=== PATIENT | female | born 2000 | race Caucasian/White ===

== ENCOUNTER → 2021-02-01 | Outpatient (CLI) | payer OTHER | LOC: SURGPAT 13:22 | PROVIDERS: ATTEND Obstetrics & Gynecology | DX: Z01.818 Encounter for other preprocedural examination (principal); Z20.822 Contact with and (suspected) exposure to COVID-19 | CPT/HCPCS: U0003; U0005 ==

== ENCOUNTER 2021-02-06 06:00 | Day surgery (SDC) | payer OTHER ==
[2021-02-01 13:46] VITALS: BP 107/63
[~2021-02-06] VITALS: Ht 165.1 cm; Wt 60.5 kg
[~2021-02-06 06:00] MED LIST: CLINDAMYCIN 900MG PREMIX 50 ML IV PRN; HYDROmorphone 2 MG/ML VIAL IVP PRN; IV RINGERS,LACTATED 1000ML 1,000 ML IV SCH; PROCHLORPERAZINE 10 MG/2 ML VIAL. IVP PRN; fentaNYL PF VIAL 100 MCG/2 ML VIAL IVP PRN
[2021-02-06 06:16] VITALS: BP 106/64
[2021-02-06] MEDS ORDERED: BUPIVACAINE-EPI 0.25%-1:200000 MPF 30 ML VIAL. ONE (06:53)
[2021-02-06] MEDS ORDERED: METHYLENE BLUE 0.5% 10ml AMPULE. ONE (06:53)
[2021-02-06] MEDS ORDERED: PROPOFOL 10 MG/ML (20ML) VIAL. IV ONE (06:54)
[2021-02-06] MEDS ORDERED: LIDOCAINE 2% PF 5 ML VIAL. ONE (06:54)
[2021-02-06] MEDS ORDERED: ROCURONIUM 50 MG/5 ML VIAL. ONE (06:54)
[2021-02-06] MEDS ORDERED: fentaNYL PF VIAL 100 MCG/2 ML VIAL ONE ×2 (07:13→08:37)
[2021-02-06] MEDS ORDERED: MIDAZOLAM HCL/PF 2 MG/2 ML VIAL. ONE (07:14)
[2021-02-06] MEDS ORDERED: KETOROLAC 30 MG/ML VIAL. ONE ×2 (07:41→08:22)
[2021-02-06] MEDS ORDERED: SEVOFLURANE 61 TO 120 MINUTES. IH ONE (07:56)
[2021-02-06] MEDS ORDERED: NEOSTIGMINE METHYLSULFATE 5 MG/5 ML SYRINGE. ONE (08:05)
[2021-02-06] MEDS ORDERED: GLYCOPYRROLATE 1 MG/5 ML VIAL. ONE (08:05)
[2021-02-06] MEDS ORDERED: PROCHLORPERAZINE 10 MG/2 ML VIAL. ONE (08:37)
[2021-02-06] MEDS: fentaNYL PF VIAL 100 MCG/2 ML VIAL IVP PRN ×2 (09:02→09:13)
[2021-02-06] MEDS ORDERED: SIMETHICONE 80 MG TAB.CHEW PO PRN (09:15)
[2021-02-06] MEDS ORDERED: diphenhydrAMINE 50 MG/ML VIAL IV PRN (09:15)
[2021-02-06] MEDS ORDERED: CALCIUM CARBONATE 500 MG TAB.CHEW PO PRN (09:15)
[2021-02-06] MEDS ORDERED: HYDROcodone/APAP 5/325MG 1 TAB TABLET PO PRN (09:15)
[2021-02-06] MEDS ORDERED: NALOXONE 0.4 MG/ML VIAL. IV PRN (09:15)
[2021-02-06] MEDS ORDERED: MAG HYDROX/ALUMINUM HYD/SIMETH 30 ML ORAL.SUSP PO PRN (09:15)
[2021-02-06] MEDS ORDERED: 0.9 % SODIUM CHLORIDE 10 ML DISP.SYRIN. IV PRN (09:15)
[2021-02-06] MEDS ORDERED: diphenhydrAMINE HCL 25 MG CAPSULE PO PRN (09:15)
--- NOTE | 2021-02-06 09:20 | PDOC ---
BRIEF OPERATIVE NOTE Date: Feb 06, 2021 Pre-Op Diagnosis pelvic pain, menorrhagia Post-Op Diagnosis same plus endometriosis, left sided adhesions and left ovarian cyst Procedure Performed operative scope, vapo endo, lysis of adhesions and left ovarian cystectomy Surgeon Dr. Adelaida Soto Services Program Manager RITA Hernandez Anesthesiologist Dr. Buchanan Anesthesia Type: General Blood Loss 10cc IV Fluid see anesthesia records Urine Output straight cath prior and clear Specimens Obtained left ovarian cyst wall Findings RV uterus, left ovarian cyst, left sided colon adhesion and endometriosis in post cul de sac Complications none Operative Note [id number] ADELAIDA SOTO MD Feb 06, 2021 09:20
[2021-02-06] MEDS ORDERED: HYDR-2761 PO (09:24)
[2021-02-06] MEDS ORDERED: MORPHINE SULFATE 2 MG/ML INJ. ONE (09:32)
[2021-02-06] MEDS: MORPHINE SULFATE 2 MG/ML INJ. IVP PRN ×2 (09:35→09:42)
[2021-02-06 09:55] VITALS: BP 95/49
--- NOTE | 2021-02-06 11:38 | OP ---
DATE OF SURGERY: 02/06/2021 PREOPERATIVE DIAGNOSES: Pelvic pain, menorrhagia, dysmenorrhea. POSTOPERATIVE DIAGNOSES: Pelvic pain, menorrhagia, dysmenorrhea, endometriosis, left-sided adhesions and left ovarian cyst. PROCEDURES: Operative laparoscopy, vaporization of endometriosis, lysis of adhesions and left ovarian cystectomy. SURGEON: Adelaida Hernandez MD. FOOD PREP WORKER: RITA Hernandez. ANESTHESIOLOGIST: Kwesi Buchanan MD. ANESTHESIA: General. BLOOD LOSS: 10 mL. URINE OUTPUT: With a straight cath and clear prior to procedure. SPECIMEN: Left ovarian cyst wall. FINDINGS: A retroverted uterus, grossly normal appendix and right upper quadrant. She had a left ovarian cyst, left-sided descending colon adhesions, just above the IP ligament and left ovary, and endometriosis in the posterior cul-de-sac. COMPLICATIONS: None. DESCRIPTION OF PROCEDURE: This patient was taken to the operating room where general anesthesia was placed. The patient was placed in dorsal lithotomy position in [facility]. The patient's abdomen and vagina were prepped and draped in the normal sterile fashion and a straight cath urine was done prior to my arrival. Upon my arrival, a time-out was performed. Once everyone agreed on the patient, the site, the procedure and the antibiotics, the procedure was initiated. A bivalve speculum was placed in the patient's vagina. A single-tooth tenaculum was used to grasp the anterior lip of the cervix. The Valtchev uterine manipulator was placed through the endocervical os, locked on the single-tooth tenaculum and the bivalve speculum was then removed. Top gloves were discarded and changed. Attention was then turned to the abdomen where a small infraumbilical skin incision was made with a scalpel. A curved Clare was used to dissect through the subcuticular layer to the fascia. The 5 mm Visiport was used to directly enter the abdominal cavity. Opening patient pressure was 3 mmHg. Carbon dioxide gas was used to appropriately insufflate the abdominal cavity to maintain a pressure of 15 mmHg. Direct abdominal placement was confirmed via the laparoscope. The patient was placed in Trendelenburg position and overhead lights were dimmed. A small 5 mm suprapubic port was placed under direct visualization and a [place] or probe was used with the above findings. At this point, it was decided to put in a right lower quadrant port as well, finding an area clear of any vasculature, making a small incision and placing in under direct visualization. A 4-5 mL of air was placed in the suprapubic and the right lower quadrant port. The camera was moved laterally to look at the umbilical port. There was a small strand of omentum right by it the kind of on that little cuff. With that, we insufflated with air and it was easily pulled off. Everything else looked good. So, at this point, the left tube and ovary were elevated. A small incision was made and a left ovarian cystectomy was performed. It was peeled off and the left ovarian cyst wall was passed off for permanent pathology. Also, using the [place] to gently pull out, the peritoneum was incised above the bowel adhesions going down and they were peeled off that left sidewall as well. So taking down the left-sided adhesions, removing the left ovarian cyst, the bladder looked good. The uterus was retroverted. The right tube and ovary were completely normal. There was some vesicular endometriosis, like clear bubbles, as well as the ____ . They were all cauterized with the monopolar tip. I was able to find the ureter on both sides, finding it coursing down. This was all below and in the cul-de-sac and more kind of under and on the left uterosacral ligament, so these areas were vaporized. Once this was done, I went through and irrigated, made sure the right and left pericolic gutters were clear. There was no active bleeding. Sandy was placed over the adhesions on the left as well as the left ovary, where I peeled off that cyst. There was no active bleeding. The gas was taken out of the suprapubic and right lower quadrant trocars. They were removed under direct visualization. They were hemostatic. Gas was released from the umbilical port. All 3 port sites were closed with 4-0 Monocryl in a subcuticular fashion and Steri-Strips were placed. The patient was awakened from anesthesia and brought to recovery room in stable condition. FEDERICO/GUALBERTO DR: Xiang TID: [id number]
--- NOTE | 2021-02-08 19:08 | PATHOLOGY ---
[facility] Accession Number: [id number] . 01 Material submitted: . ovary - LEFT OVARIAN CYST. Modifiers: left . 01 Clinical history: . PELVIC PAIN DIAGNOSTIC LAP POSS VAPORIZATION ENDOMETRIOS, POSS LYSIS OF ADHESION . . 02 Diagnosis: Segments of ovarian tissue, left ovarian cyst: - Hemorrhagic luteinized cyst. - Few small cystic follicles. - Ovarian capsular adhesions, focal. (JPM:pit; 02/08/2021) [facility] 02/08/2021 1823 Local . 02 Comment: There is no evidence of endometriosis. There is no evidence of malignancy. (JPM:pit; 02/08/2021) . 02 Electronically signed: . Elroy Carvajal MD, Pathologist NPI- [id number] . 01 Gross description: . The specimen is received in formalin, labeled "Sandip Anne, left ovarian cyst". Received are multiple segments of pale bell tissue, with a slight amount of possible normal ovarian stroma identified, measuring 3.8 x 2.9 x 0.7 cm in aggregate dimensions. The specimen is submitted entirely in cassettes A1 and A2. (CAA; 02/07/2021) QA/QA 02/07/2021 1301 Local . 02 Pathologist provided ICD-10: N83.202 . 02 CPT . 069955 Specimen Comment: A courtesy copy of this report has been sent to [phone] Specimen Comment: Report sent to Performed at: 01 [facility] [address], [place] [id number] MD Ramirez Abdalla MD Phone: [phone] Performed at: 02 [facility] [address] [place], [place] [id number] MD Elroy Carvajal MD Phone: [phone]
== END 2021-02-06 10:30 | disposition home or self-care (01) ==
LOC: SURG 06:00 → EDUNIT# 07:30 → SURG 10:30
PROVIDERS: ATTEND Obstetrics & Gynecology
DX: N83.202 Unspecified ovarian cyst, left side (principal); R10.2 Pelvic and perineal pain; N92.0 Excessive and frequent menstruation with regular cycle; N94.6 Dysmenorrhea, unspecified; N85.4 Malposition of uterus; K21.9 Gastro-esophageal reflux disease without esophagitis; F41.9 Anxiety disorder, unspecified; F32.9 Major depressive disorder, single episode, unspecified; Z87.891 Personal history of nicotine dependence; Z79.899 Other long term (current) drug therapy; Z98.890 Other specified postprocedural states; Z88.0 Allergy status to penicillin
CPT/HCPCS: 58662; 81025; 88305; A4364; A4930; A6219; J0780; J1885; J1956; J2250; J2270; J2704; J2710; J3010; J3490; A4351; A4452; Q9968

== ENCOUNTER 2021-03-25 00:17 | Emergency (ER) | payer OTHER ==
[~2021-03-25] VITALS: Ht 165.1 cm; Wt 56.1 kg
[~2021-03-25 00:17] MED LIST changes: -CLINDAMYCIN 900MG PREMIX 50 ML IV PRN; +HYDR-2761 PO; -HYDROmorphone 2 MG/ML VIAL IVP PRN; -IV RINGERS,LACTATED 1000ML 1,000 ML IV SCH; -PROCHLORPERAZINE 10 MG/2 ML VIAL. IVP PRN; -fentaNYL PF VIAL 100 MCG/2 ML VIAL IVP PRN
--- NOTE | 2021-03-25 00:45 | PHYS DOC ---
Past Medical History Past Medical History Endometriosis Past Surgical History Laparoscopic procedure for endometriosis 02/06/2021 Alcohol Use: None Drug Use: None General Adult EDM: Chief Complaint: ABDOMINAL PAIN HPI: HPI: 20-year-old female with a history of endometriosis presents with approximately 1 month of abdominal pain in her lower quadrant is also in her upper quadrants that feels sharp, related to some nausea with vomiting, constipation symptoms. She had surgery for endometriosis on 02/06/2021 described as a laparoscopic surgery. She also admits to some chronic vaginal discharge since childhood. She states that tonight her nausea got bad and she wanted to come to the ER. She states that her pain is similar to her endometriosis pain but slightly different because it is more severe. She denies any vaginal bleeding. The poly ent denies stool change,, fever, chills, chest pain, shortness of breath, urinary symptoms, cough, recent trauma, or any other complaints. Review of Systems: Review of Systems: ROS is otherwise negative except for what was mentioned in HPI Heart Score: C/O Chest Pain: No Allergies: Allergies: Allergies Coded Allergies Type Severity Reaction Last Updated Verified Penicillins Allergy Intermediate 02/01/21 Yes Physical Exam: PE: Constitutional: No acute distress, non-toxic appearance. HENT: Atraumatic, bilateral external ears normal, nose normal. Eyes: PERRLA, EOMI, conjunctiva normal, no discharge. Neck: Normal range of motion, supple, no stridor. Cardiovascular: Heart rate regular rhythm. 2+ radial pulses Lungs & Thorax: No respiratory distress, symmetrical expansion. Bilateral breath sounds clear to auscultation Abdomen: Minimal tenderness throughout abdomen, soft, no guarding, no rebound; patient complains of more pain in the lower quadrant abdominal area than her upper quadrant upon exam Skin: Warm, dry. Extremities: No tenderness, no cyanosis, ROM intact, no edema. Neurologic: Alert and oriented X 3, normal motor function, normal sensory function, no focal deficits noted. Non ataxic gait. GCS 15. Psychologic: Affect normal, judgment normal, mood normal. Current Patient Data: Labs: Laboratory Tests Test 03/25/21 01:00 03/25/21 01:14 03/25/21 01:20 Urine Collection Type Unknown Urine Color Yellow Urine Clarity Clear Urine pH 6.0 (<5.0-8.0) Urine Specific [place] 1.025 (1.000-1.030) Urine Protein Negative mg/dL (NEG-TRACE) Urine Glucose (UA) Negative mg/dL (NEG) Urine Ketones (Stick) Trace mg/dL (NEG) Urine Blood Negative (NEG) Urine Nitrite Negative (NEG) Urine Bilirubin Negative (NEG) Urine Urobilinogen Dipstick 1.0 mg/dL (0.2 mg/dL) Urine Leukocyte Esterase Small (NEG) Urine RBC 0 /HPF (0-2) Urine WBC 1-4 /HPF (0-4) Urine Squamous Epithelial Cells Mod /LPF Urine Bacteria Few /HPF (0-FEW) Urine Mucus Slight /LPF Urine Opiates Screen Neg (NEG) Urine Methadone Screen Neg (NEG) Urine Barbiturates Neg (NEG) Urine Phencyclidine Screen Neg (NEG) Urine Amphetamine/Methamphetamine Neg (NEG) Urine Benzodiazepines Screen Neg (NEG) Urine Cocaine Screen Neg (NEG) Urine Cannabinoids Screen Pos (NEG) Urine Ethyl Alcohol Neg (NEG) Bedside Urine HCG, Qualitative Hcg negative (Negative) White Blood Count 8.5 x10^3/uL (4.0-11.0) Red Blood Count 4.30 x10^6/uL (3.50-5.40) Hemoglobin 14.0 g/dL (12.0-15.5) Hematocrit 39.8 % (36.0-47.0) Mean Corpuscular Volume 93 fL (79-100) Mean Corpuscular Hemoglobin 33 pg (25-35) Mean Corpuscular Hemoglobin Concent 35 g/dL (31-37) Red Cell Distribution Width 13.5 % (11.5-14.5) Platelet Count 253 x10^3/uL (140-400) Neutrophils (%) (Auto) 71 % (31-73) Lymphocytes (%) (Auto) 19 % (24-48) Monocytes (%) (Auto) 8 % (0-9) Eosinophils (%) (Auto) 1 % (0-3) Basophils (%) (Auto) 1 % (0-3) Neutrophils # (Auto) 6.1 x10^3/uL (1.8-7.7) Lymphocytes # (Auto) 1.7 x10^3/uL (1.0-4.8) Monocytes # (Auto) 0.7 x10^3/uL (0.0-1.1) Eosinophils # (Auto) 0.0 x10^3/uL (0.0-0.7) Basophils # (Auto) 0.1 x10^3/uL (0.0-0.2) Sodium Level 137 mmol/L (136-145) Potassium Level 4.2 mmol/L (3.5-5.1) Chloride Level 102 mmol/L (98-107) Carbon Dioxide Level 24 mmol/L (21-32) Anion Gap 11 (6-14) Blood Urea Nitrogen 9 mg/dL (7-20) Creatinine 0.8 mg/dL (0.6-1.0) Estimated GFR (Cockcroft-Gault) 91.4 BUN/Creatinine Ratio 11 (6-20) Glucose Level 84 mg/dL (70-99) Calcium Level 9.7 mg/dL (8.5-10.1) Total Bilirubin 1.7 mg/dL (0.2-1.0) Aspartate Amino Transf (AST/SGOT) 14 U/L (15-37) Alanine Aminotransferase (ALT/SGPT) 11 U/L (14-59) Alkaline Phosphatase 52 U/L (46-116) Total Protein 7.9 g/dL (6.4-8.2) Albumin 4.5 g/dL (3.4-5.0) Albumin/Globulin Ratio 1.3 (1.0-1.7) Lipase 96 U/L (73-393) Vital Signs: Vital Signs Date Time Temp Pulse Resp B/P (MAP) Pulse Ox O2 Delivery O2 Flow Rate FiO2 03/25/21 04:43 72 20 86/50 (62) 99 Room Air 03/25/21 04:13 70 20 100/57 (71) 100 Room Air 03/25/21 03:43 70 20 109/55 (73) 99 Room Air 03/25/21 03:13 68 20 100/59 (73) 100 Room Air 03/25/21 02:43 72 20 96/65 (75) 100 Room Air 03/25/21 01:38 78 18 110/72 (85) 99 Room Air 03/25/21 01:08 84 20 93/54 (67) 99 Room Air 03/25/21 00:45 98.4 72 18 95/49 (64) 99 Room Air 98.4 Radiology/Procedures: Radiology/Procedures: EXAM: CT Abdomen and Pelvis with IV contrast CLINICAL HISTORY: Reason: abdominal pain lower quadrants, OMNI 300 75 ML IV / Spl. Instructions: / History: . COMPARISON: None TECHNIQUE: Helical CT of the abdomen and pelvis was performed following the administration of intravenous contrast. Axial, coronal and sagittal reformatted images were generated. PQRS compliance statement - One or more of the following individualized dose re duction techniques were utilized for this study: 1. Automated exposure control 2. Adjustment of the mA and/or kV according to patient size 3. Use of iterative reconstruction technique FINDINGS: Lower Chest: Lung bases are clear. Abdomen and Pelvis: The liver is normal in appearance with small focus of fat adjacent to the falciform ligament. The spleen, gallbladder, adrenals, Pily are unremarkable. Normal parenchymal enhancement of bilateral kidneys. Subcentimeter echodensity within the right kidney, too small to characterize. Punctate nonobstructing left renal calculus. No hydronephrosis the stomach is unremarkable. There is no evidence of small or large bowel obstruction. Appendix appears normal. No free intra-abdominal air. No pathologically enlarged abdominal or pelvic lymph nodes. Vasculature appears normal in course and caliber. Bladder is partially decompressed but otherwise unremarkable. Anteverted uterus is present. There is a peripherally enhancing 2.6 cm area in the region of the right adnexa most consistent with a crenulated right ovarian follicle. There is a small amount of abdominal a simple fluid within the pelvis. Left adnexa is unremarkable. Bones: No acute osseous abnormalities. IMPRESSION: 1. Findings suggestive of recently ruptured right corpus luteal cyst with small amounts of fluid within the pelvis. 2. Normal-appearing appendix. Electronically signed by: Aristides Minaya DO (03/25/2021 4:44 AM) Course & Med Decision Making: Course & Med Decision Making Patient refused nausea and pain medicine in the ER. Her CT scan is suggestive of a ruptured corpus luteal cyst, I explained these findings to her and she is understanding. Her pain is well controlled this time and her vitals are stable. I advised her that she should take NSAIDs every 4-6 hours at home for the next few days for pain control. I offered to write her NSAID medications and antiemetics and she refused Departure Departure Impression: Primary Impression: Ruptured ovarian cyst Disposition: HOME / SELF CARE / HOMELESS Condition: STABLE Referrals: NO PCP (PCP) Patient Instructions: Ovarian Cyst, [id number] Additional Instructions: You were seen in the emergency department for abdominal pain. Your CT was suggestive of a ruptured ovarian cyst as the cause of your pain today. You should use ibuprofen every 4-6 hours the next 3 days either 400 to 600 mg if you continue to have pain. You must return to the ED if you develop any new or worrisome symptoms for another exam. - Make sure to drink plenty of fluids at home - You may take a gentle laxative such as Miralax (over the counter) for bowel comfort. - Avoid drinking alcohol while you are having abdominal pain as this may worsen symptoms. - Return to the ER if you are not able to tolerate water and/or a normal diet, have increased pain or a change in character of your pain, develop a fever (>100.3 F), have nausea, vomiting and/or diarrhea that is unable to be treated at home, pass out, and/or you are not able to perform you normal daily activity. DANIEL TERRY DO Mar 25, 2021 00:45
[2021-03-25] MEDS ORDERED: KETOROLAC 15 MG/ML VIAL. IVP ONE (01:00)
[2021-03-25] MEDS ORDERED: IV NORMAL SALINE 1000ML BAG 1,000 ML IV SCH (01:00)
[2021-03-25 01:22] LABS: BILIRUBIN,URINE NEGATIVE (NEG); CLARITY,URINE CLEAR; COLOR,URINE YELLOW; NITRITE,URINE NEGATIVE (NEG); PROTEIN,URINE NEGATIVE (NEG-TRACE)
[2021-03-25 01:29] LABS: BACTERIA,URINE FEW /HPF (0-FEW); BARBITURATES NEG (NEG); BENZODIAZEPINES NEG (NEG); CANNABINOIDS POS (NEG); COCAINE NEG (NEG); METHADONE NEG (NEG); OPIATES NEG (NEG); PHENCYCLIDINE NEG (NEG); RBC,URINE 0 /HPF (0-2)
[2021-03-25] MEDS ORDERED: ONDANSETRON PF 4 MG/2 ML VIAL. IVP ONE (01:30)
[2021-03-25 01:32] LABS: AMPHETAMINE/METHAMPHETAMINE NEG (NEG)
[2021-03-25 01:43] LABS: BASO # 0.1 x10^3/uL (0.0-0.2); BASO % 1 % (0-3); EOS % 1 % (0-3); HEMATOCRIT 39.8 % (36.0-47.0); LYMPH # 1.7 x10^3/uL (1.0-4.8); LYMPH % 19 % (24-48); MEAN CORPUSCULAR HEMOGLOBIN 33 pg (25-35); MEAN CORPUSCULAR HGB CONC 35 g/dL (31-37); MEAN CORPUSCULAR VOLUME 93 fL (79-100); MONO # 0.7 x10^3/uL (0.0-1.1); MONO % 8 % (0-9); NEUT # 6.1 x10^3/uL (1.8-7.7); NEUT % 71 % (31-73); PLATELET COUNT 253 x10^3/uL (140-400); RED CELL DISTRIBUTION WIDTH 13.5 % (11.5-14.5); WHITE BLOOD COUNT 8.5 x10^3/uL (4.0-11.0)
[2021-03-25 01:53] LABS: CALCIUM 9.7 mg/dL (8.5-10.1); CREATININE 0.8 mg/dL (0.6-1.0); GFR 91.4; POTASSIUM 4.2 mmol/L (3.5-5.1)
[2021-03-25 01:59] LABS: ALBUMIN 4.5 g/dL (3.4-5.0); ALBUMIN/GLOBULIN RATIO 1.3 (1.0-1.7); TOTAL BILIRUBIN 1.7 mg/dL (0.2-1.0); TOTAL PROTEIN 7.9 g/dL (6.4-8.2)
[2021-03-25] MEDS ORDERED: IOHEXOL 300 MG/ML 100ML VIAL. IV ONE (02:00)
[2021-03-25] MEDS ORDERED: CONTRAST GIVEN. MC PRN (02:00)
--- NOTE | 2021-03-25 04:46 | RAD ---
EXAM: CT Abdomen and Pelvis with IV contrast CLINICAL HISTORY: Reason: abdominal pain lower quadrants, OMNI 300 75 ML IV / Spl. Instructions: / H istory: . COMPARISON: None TECHNIQUE: Helical CT of the abdomen and pelvis was performed following the administration of intrave nous contrast. Axial, coronal and sagittal reformatted images were generated. PQRS compliance statement - One or more of the following individualized dose reduction techniques wer e utilized for this study: 1. Automated exposure control 2. Adjustment of the mA and/or kV according to patient size 3. Use of iterative reconstruction technique FINDINGS: Lower Chest: Lung bases are clear. Abdomen and Pelvis: The liver is normal in appearance with small focus of fat adjacent to the falciform ligament. The spl een, gallbladder, adrenals, Pily are unremarkable. Normal parenchymal enhancement of bilateral kidne ys. Subcentimeter echodensity within the right kidney, too small to characterize. Punctate nonobstruc ting left renal calculus. No hydronephrosis the stomach is unremarkable. There is no evidence of smal l or large bowel obstruction. Appendix appears normal. No free intra-abdominal air. No pathologically enlarged abdominal or pelvic lymph nodes. Vasculature appears normal in course and caliber. Bladder is partially decompressed but otherwise unremarkable. Anteverted uterus is present. There is a peripherally enhancing 2.6 cm area in the region of the right adnexa most consistent with a crenula lauren right ovarian follicle. There is a small amount of abdominal a simple fluid within the pelvis. Le ft adnexa is unremarkable. Bones: No acute osseous abnormalities. IMPRESSION: 1. Findings suggestive of recently ruptured right corpus luteal cyst with small amounts of fluid with in the pelvis. 2. Normal-appearing appendix. Electronically signed by: Aristides Minaya DO (03/25/2021 4:44 AM) [facility]
[2021-03-25 05:43] VITALS: BP 101/59
== END 2021-03-25 05:53 | disposition home or self-care (01) ==
LOC: ER 00:17
DX: N83.201 Unspecified ovarian cyst, right side (principal); Z88.0 Allergy status to penicillin
CPT/HCPCS: 74177; 80053; 80307; 81001; 81025; 83690; 85025; 87077; 87086; 87186; 96360; 99285; J7030; Q9967